=== PATIENT | female | born 1995 | race Hispanic/Latino ===

== ENCOUNTER 2023-12-14 20:32 | Emergency (ER) | payer MEDICAID ==
[~2023-12-14] VITALS: Ht 160 cm; Wt 63.5 kg
[2023-12-14 20:54] LABS: APPEARANCE,URINE CLOUDY (CLEAR); BILIRUBIN,URINE NEGATIVE (NEGATIVE); COLOR,URINE COLORLESS (YELLOW); GLUCOSE, URINE (UA) NEGATIVE (NEGATIVE); KETONES,URINE NEGATIVE (NEGATIVE); LEUKOCYTE ESTERASE ,URINE 500 Leu/uL (NEGATIVE); NITRATE,URINE NEGATIVE (NEGATIVE); OCCULT BLOOD,URINE SMALL (NEGATIVE); PROTEIN,URINE NEGATIVE (NEGATIVE); UROBILINOGEN,URINE 0.2 mg/dL (0.2-1.0)
[2023-12-14 20:56] LABS: ADD UA MICROSCOPIC YES
[2023-12-14 21:02] LABS: BACTERIA,URINE RARE /HPF (None Seen); OTHER CASTS, URINE 3 /LPF (None Seen); RBC,URINE 0-1 /HPF (0-1); SQUAMOUS EPITHELIAL CELL,UR FEW /HPF (0-2); WBC,URINE 51-100 /HPF (0-1)
[2023-12-14 21:06] LABS: SARS-CoV-2, RNA, NAAT NEGATIVE SARS CoV-2 (NEGATIVE)
[2023-12-14 21:07] LABS: INFLUENZA TYPE A Negative For Type A (NEGATIVE); INFLUENZA TYPE B Negative For Type B (NEGATIVE)
[2023-12-14] MEDS: cefTRIAXone 1G VIAL IVPB ONE (21:28)
[2023-12-14] MEDS: acetaMINOPHEN 325 MG TAB PO ONE (21:28)
[2023-12-14] MEDS: acetaMINOPHEN WITH coDEINE 1 TAB TAB PO ONE (21:28)
[2023-12-14] MEDS: 0.9%NACL 1000ML 1,000 ML IV ONE (21:29)
[2023-12-14] MEDS: ondanSETRON 4MG INJ IVP ONE (21:29)
[2023-12-14 21:37] LABS: BASOPHILS # (AUTO) 0.04 K/uL (0.00-0.20); BASOPHILS % (AUTO) 0.3 % (0.0-5.0); EOSINOPHILS # (AUTO) 0.02 K/uL (0.00-0.70); EOSINOPHILS % (AUTO) 0.1 % (0.0-8.0); HEMATOCRIT 35.2 % (36-48); IMMATURE GRANULOCYTE ABSOLUTE 0.06 K/uL (0-1); LYMPHOCYTES # (AUTO) 1.1 K/uL (1.0-4.8); LYMPHOCYTES % (AUTO) 7.1 % (21.0-51.0); MEAN CORPUSCULAR HEMOGLOBIN 26.3 pg (27.0-33.0); MEAN CORPUSCULAR HGB CONC 32.7 g/dL (32.0-36.0); MEAN CORPUSCULAR VOLUME 80.5 fL (79-99); MONOCYTES # (AUTO) 0.7 K/uL (0.1-1.0); MONOCYTES % (AUTO) 4.4 % (3.0-13.0); NEUTROPHILS # (AUTO) 13.2 K/uL (1.8-7.7); NEUTROPHILS % (AUTO) 87.7 % (40.0-77.0); PLATELET COUNT (AUTO) 335 K/uL (130-400); RED BLOOD CELL COUNT(AUTO) 4.37 MIL/uL (4.00-5.50)
[2023-12-14 21:44] LABS: CREATININE 0.7 mg/dL (0.5-1.0); POTASSIUM 3.2 mmol/L (3.5-5.1)
[2023-12-14] MEDS ORDERED: CEPH500T PO (21:57)
[2023-12-14] MEDS ORDERED: ONDA-243 PO (21:57)
[2023-12-14] MEDS ORDERED: IBUP-2070 PO (21:57)
[2023-12-14] MEDS: ketOROlac 15MG/ML VIAL (15MG/ML) IV ONE (22:13)
[2023-12-14] MEDS: PoTASSium BIcarbonate/CIT AC 25 MEQ TABLET.EFF PO ONE (22:14)
[2023-12-14 22:16] VITALS: TEMP 100.3
[2023-12-14 22:34] VITALS: BP 116/61; PULSE 101; RESP 16; TEMP 100.4; O2SAT 98
[2023-12-14] MEDS ORDERED: LEVO750T68 PO (22:52)
== END 2023-12-14 22:41 | disposition home or self-care (01) ==
LOC: EDH 20:32
DX: N39.0 Urinary tract infection, site not specified (principal); R50.9 Fever, unspecified; R11.0 Nausea; E87.6 Hypokalemia; N12 Tubulo-interstitial nephritis, not specified as acute or chronic; Z20.822 Contact with and (suspected) exposure to COVID-19
CPT/HCPCS: 99284; 96365; 96375; 87635; 80048; 85025; 87086 ×2; 87186; 87804 ×2; 81001; 81025; 36415; J7030; J0696; J2405; J1885